=== PATIENT | male | born 1955 | race Caucasian/White ===

== ENCOUNTER → 2018-05-08 09:14 | Outpatient (CLI) | payer MEDICAID ==
--- NOTE | ~2018-05-08 | EC ---
PATIENT:ANTONIO CINTRON DATE OF SERVICE: 05/08/18 SEX: M MEDICAL RECORD: [id number] DATE OF : 57 LOCATION:D[facility] AGE OF PATIENT: 62 ADMISSION DATE: 05/08/18 REFERRING PHYSICIAN: INTERPRETING PHYSICIAN: JO BALDERAS MD ECHOCARDIOGRAM REPORT ECHO CHARGES 4 ECHO COMPLETE Date: 05/08/18 CLINICAL DIAGNOSIS: HYPERLIPIDEMA/CHEST PAIN ECHOCARDIOGRAPHIC MEASUREMENTS (adult normal given) AC root (d.<3.7cm) 4.2 cm LV Septum d (<1.2 cm> 1.3 cm Valve Excursion 1.9 cm LV Septum (systole) 1.8 cm Left Atria (s.<4.0cm> 3.9 cm LVPW d(<1.2cm) 1.5 cm RV (d.<2.3cm) 4.0 cm LVPW (sytole) 1.8 cm LV diastole(<5.6CM) 4.5 cm MV E-F(>70mm/sec) cm LV systole 2.3 cm LVOT Diameter 1.9 cm MV exc.(>10mm) 1.9 cm Est.ejection fraction (50-75%) % DOPPLER: LVIT cm/sec A 98.0 cm/sec E 85.0 cm/sec LA cm/sec RVSP 18 mmHg LVOT 111 cm/sec AOP1/2T m/s Asc. Ao 165 cm/sec RVOT 90 cm/sec RA cm/sec PA 151 cm/sec AV Gradient Peak 10.84mmHg AV Mean 5.49 mmHg AV Area 2.0 cm MV Gradient Peak 4.23 mmHg MV Mean 1.27 mmHg MV Area cm COMMENTS: Environmental Department Manager: Timi TREJO Mechanical Manager: Damián Balderas TAPE# PACS Pericardial Effusion N DATE OF SERVICE: PROCEDURE: Transthoracic echocardiogram. INDICATION: 1. The left ventricle shows mild left ventricular hypertrophy. Ejection fraction is 65%. 2. Left atrium is normal size, shape, and function. 3. The aortic valve is normal. 4. The mitral valve is normal. ECHOCARDIOGRAM REPORT [id number] ANTONIO CINTRON 5. The tricuspid valve has trace tricuspid regurgitation. RVSP is normal. 6. The right ventricle appears to be mgcs-mw-jqkmykkovp dilated. 7. The right atrium appears to be upper limits of normal. 8. The pulmonic valve is not well visualized, but appears to be structurally and functionally normal. There is no pericardial effusion. CONCLUSION: The patient has evidence of hypertensive heart disease with diastolic dysfunction, otherwise normal echocardiogram. TRANSINT:[id number] Voice Confirmation ID: [id number] DOCUMENT ID: [id number] JO BALDERAS MD at 0738 CC: [id number] DICTATION DATE: 05/09/18837 SPLITTING MACHINE FEEDER: 05/09/18 0953 DEP CLI 05/08/18 [id number] [place] [address]
== END | disposition home or self-care (01) ==
LOC: D.ECHO 09:00
DX: E78.5 Hyperlipidemia, unspecified (principal)

== ENCOUNTER → 2018-05-16 07:52 | Outpatient (CLI) | payer MEDICAID ==
--- NOTE | ~2018-05-16 | ST ---
PATIENT:ANTONIO CINTRON MEDICAL RECORD: [id number] SEX: M LOCATION:[facility] ORDER #: ADMISSION DATE: 05/16/18 AGE OF PATIENT: 62 REFERRING PHYSICIAN: INTERPRETING PHYSICIAN: JO BALDERAS MD DATE OF SERVICE: 05/16/2018 PROCEDURE: Rufino directed exercise nuclear stress test. PROCEDURE IN DETAIL: The patient was brought into the nuclear stress test, exercised on a standard Rufino protocol. The patient had no significant ST or T-wave abnormalities. There were 3 stages of Rufino, had an adequate double product. Rufino score is -7. The patient then had nuclear infusion both at rest and stress. The patient had 12.5 mCi sestamibi injected at rest and 32.3 mCi sestamibi injected at stress. The gated imaging showed an ejection fraction of 62% without regional wall motion abnormalities. The SPECT imaging showed good homogeneous uptake. No areas of photopenia. Negative for any inducible ischemia. IMPRESSION: This is normal Rufino and normal nuclear stress test, images being of good quality. The patient has a normal ejection fraction. TRANSINT:[id number] Voice Confirmation ID: [id number] DOCUMENT ID: [id number] JO BALDERAS MD CC: [id number] DICTATION DATE: 05/17/18 08 WARRANT CLERK: 05/17/18 0832 DEP CLI 05/16/18 [address] [place] [address]
== END | disposition home or self-care (01) ==
LOC: D.NM 07:52
DX: R07.9 Chest pain, unspecified (principal); R00.2 Palpitations; R06.02 Shortness of breath; E78.5 Hyperlipidemia, unspecified; I10 Essential (primary) hypertension

== ENCOUNTER 2018-07-16 10:50 | Emergency (ER) | payer MEDICAID ==
[~2018-07-16] VITALS: Ht 180.3 cm; Wt 95.5 kg
[2018-07-16 10:59] VITALS: Ht 180.3 cm; Wt 95.5 kg
[2018-07-16] MEDS ORDERED: HYDROXYUREA500 MG PO (11:01)
[2018-07-16] MEDS ORDERED: GLUCOPHAGE500 MG PO (11:01)
[2018-07-16] MEDS ORDERED: LISINOPRIL2.5 MG PO (11:01)
[2018-07-16] MEDS ORDERED: ZOCOR20 MG PO (11:01)
[2018-07-16] MEDS ORDERED: BAYER CHEWABLE81 MG PO (11:02)
[2018-07-16 11:16] LABS: BASOPHILS 0.9 % (0-2); EOSINOPHILS 3.4 % (0-7); HEMATOCRIT 40.6 % (42.0-54.0); HEMOGLOBIN 13.1 g/dL (13.5-17.5); IMMATURE GRANULOCYTES 0.8 % (0-5); LYMPHOCYTES 12.3 % (15-50); MCH 25.4 pg (26.0-34.0); MCHC 32.3 g/dL (31.0-37.0); MCV 78.7 fL (80.0-100.0); MEAN PLATELET VOLUME 9.1 fL (7.4-10.4); MONOCYTES 5.3 % (2-11); NEUTROPHILS 77.3 % (40-80); PLATELET COUNT 315 10x3/uL (130-400); RBC 5.16 10x6/uL (4.20-6.10); RDW 22.8 % (11.5-14.5); WBC 12.9 10x3/uL (4.8-10.8)
[2018-07-16 11:35] LABS: ALBUMIN 3.9 g/dL (3.4-5.0); ALKALINE PHOSPHATASE 68 U/L (46-116); ALT (SGPT) 35 U/L (10-68); BILIRUBIN - TOTAL 0.33 mg/dL (0.2-1.3); CALC OSMOLALITY 278 mosm/kg (275-300); CALCIUM 9.6 mg/dL (8.5-10.1); CARBON DIOXIDE 30.4 mmol/L (21.0-32.0); CHLORIDE - SERUM 103 mmol/L (98-107); CREATININE - SERUM 0.7 mg/dL (0.6-1.3); GLUCOSE 136 mg/dL (74-106); POTASSIUM - SERUM 4.1 mmol/L (3.5-5.1); PROTEIN - SERUM 8.1 g/dL (6.4-8.2); SODIUM 138 mmol/L (136-145); UREA NITROGEN 14 mg/dL (7-18); eGFR NON AFRICAN AMERICAN > 90 mL/min (90-120)
[2018-07-16 11:43] LABS: CKMB 2.1 U/L (0.0-3.6); CREATINE KINASE 122 UL (21-232); MAGNESIUM - SERUM 1.8 mg/dL (1.8-2.4); PRO BNP 38 pg/mL (0-125); TROPONIN-I < 0.017 ng/mL (0.000-0.060)
[2018-07-16] MEDS ORDERED: OMEPRAZOLE40 MG PO (12:56)
[2018-07-16 14:05] VITALS: BP 115/82
== END 2018-07-16 13:45 | disposition home or self-care (01) ==
LOC: D.ER 10:50
PROVIDERS: Emergency Medicine
DX: R07.9 Chest pain, unspecified (principal); E11.9 Type 2 diabetes mellitus without complications; K21.9 Gastro-esophageal reflux disease without esophagitis; D72.829 Elevated white blood cell count, unspecified; D75.1 Secondary polycythemia; Z85.6 Personal history of leukemia; I49.3 Ventricular premature depolarization

== ENCOUNTER → 2018-10-01 11:41 | Outpatient (CLI) | payer BC ==
[2018-07-16 10:59] VITALS: BMI 29.3
[~2018-10-01 11:41] MED LIST: BAYER CHEWABLE81 MG PO; GLUCOPHAGE500 MG PO; HYDROXYUREA500 MG PO; LISINOPRIL2.5 MG PO; OMEPRAZOLE40 MG PO; ZOCOR20 MG PO
== END | disposition home or self-care (01) ==
LOC: D.RAD 11:41
DX: J06.9 Acute upper respiratory infection, unspecified (principal)

== ENCOUNTER → 2018-10-15 12:34 | Outpatient (CLI) | payer BC ==
[2018-07-16 10:59] VITALS: BMI 29.3
== END | disposition home or self-care (01) ==
LOC: D.RAD 11:00
DX: M25.512 Pain in left shoulder (principal)

== ENCOUNTER 2018-11-23 07:25 | Day surgery (SDC) | payer BC ==
[2018-11-22 11:23] LABS: HEMATOCRIT 44.4 % (42.0-54.0); HEMOGLOBIN 14.8 g/dL (13.5-17.5); MCH 31.7 pg (26.0-34.0); MCHC 33.3 g/dL (31.0-37.0); MCV 95.1 fL (80.0-100.0); MEAN PLATELET VOLUME 9.4 fL (7.4-10.4); RBC 4.67 10x6/uL (4.20-6.10); RDW 15.8 % (11.5-14.5); WBC 12.6 10x3/uL (4.8-10.8)
[2018-11-22 11:32] LABS: INR 1.06 (0.85-1.17); PROTIME 13.3 SECONDS (11.6-15.0)
[2018-11-22 11:33] LABS: APTT 33.5 SECONDS (22.8-39.4)
[2018-11-22 11:34] LABS: CALC OSMOLALITY 285 mosm/kg (275-300); CALCIUM 9.3 mg/dL (8.5-10.1); CARBON DIOXIDE 29.5 mmol/L (21.0-32.0); CHLORIDE - SERUM 101 mmol/L (98-107); CREATININE - SERUM 0.9 mg/dL (0.6-1.3); GLUCOSE 231 mg/dL (74-106); SODIUM 140 mmol/L (136-145); UREA NITROGEN 13 mg/dL (7-18); eGFR NON AFRICAN AMERICAN > 90 mL/min (90-120)
[~2018-11-23] VITALS: Ht 180.3 cm; Wt 95.3 kg
[~2018-11-23 07:25] MED LIST changes: +FISH OIL 1,0001 CA1 PO
[2018-11-23 08:34] VITALS: Ht 180.3 cm; Wt 95.3 kg
[2018-11-23] MEDS ORDERED: DURICEF500 MG PO (12:53)
[2018-11-23] MEDS ORDERED: PERCOCET 7.5/321 TAB PO (12:53)
[2018-11-23] MEDS ORDERED: VISTARIL50 MG PO (12:54)
--- NOTE | 2018-11-23 15:12 | OP ---
PATIENT NAME: ANTONIO CINTRON MEDICAL RECORD: [id number] :57 LOCATION:[facility] ADMISSION DATE: SURGEON: BRYON DEL ANGEL DO DATE OF OPERATION: 11/23/2018 PROCEDURE PERFORMED: Left shoulder arthroscopy with lysis of adhesions, biceps tenodesis, subacromial decompression, distal clavicle excision, labral debridement, and manipulation under anesthesia. PREOPERATIVE DIAGNOSES: Left shoulder adhesive capsulitis, SLAP tear, subacromial impingement, and AC joint arthritis. INDICATIONS: Mr. Cintron is a 63-year-old male who has had left shoulder pain for quite some time. He had an MRI, which did show a questionable SLAP tear on the MRI, but he has had limited external rotation for quite some time that had been getting worse. He is a diabetic and has been working on his motion on his own and some therapy to no avail. He is tired of dealing with the pain and wanted something done surgically to relieve it. He also had AC joint arthritis noted on the MRI. I informed him that I would do a biceps tenodesis and do the manipulation and the lysis of adhesions in the rotator interval to free up his external rotation. As he had full forward flexion and abduction, I did not need to release any other part of the capsule. He is understanding of that, understood the risks and benefits including damage to nerves, axillary nerve in particular and infection, bleeding and need for further surgery as well as recurrence of adhesive capsulitis. He was okay with those risks and signed the consent. SURGEON: Bryon Del Angel DO DESCRIPTION OF PROCEDURE: The patient received a block by anesthesia in the preoperative area and taken to the operative suite, laid in the right lateral decubitus position with the left shoulder up. He was given 900 mg of clindamycin preoperatively. The left shoulder was prepped and draped in sterile fashion. A timeout was performed. Everyone was in agreement as to the correct side, site, patient and procedure. He had been sedated and an LMA was placed. The procedure then began with 60 mL of normal saline being injected into his shoulder joint from the posterior portal with an 18-gauge spinal needle and then an 11-blade scalpel to create the portal. The trocar was then entered into the joint and quite a bit of inflammation was seen in the joint itself. The SLAP tear was noted right away. The anterior portal was then established with an 18-gauge spinal needle and 11-blade scalpel. Trocar was brought in. The rotator cuff was inspected, did not have a full thickness tear on the articular side, the supraspinatus or the subscapularis or infraspinatus. The joint appeared to be in good condition. No chondromalacia was seen on the glenoid or the humerus. The bur was then brought in through the anterior portal and a bicep tenotomy was done at that point as well as a labral debridement and then the rotator interval was opened with the burner. Once this was done, the camera was removed and the scope was placed into the subacromial space. A lateral portal was then established with an 18-gauge spinal needle and 11-blade scalpel. Once that was opened up, the burner was brought in and decompression was done. He did have a significant amount of bursa in that area and a bursectomy was done. The acromion was cleaned off as well as AC joint and then the shaver was brought in and the distal clavicle was excised to open up the AC joint to approximately 7 mm, this through the anterior portal. The lateral portal was entered with a shaver and the distal lateral acromion was removed. The shaver OPERATIVE REPORT [id number] ANTONIO CINTRON was then kept in and more bursectomy was done on the top of the rotator cuff. The arm was rotated anterior and posterior to inspect it. No tears were seen on the bursal side. The scope was then removed and another small incision was made on the anterior humerus. Dissection was made down to the biceps tendon and biceps tendon was pulled out through the incision, whipstitched, and then a drill was used to make a unicortical hole in the humerus. A button was then placed on the whipstitched tendon and placed into the hole of the humerus and then the tendon was cinched down to that spot and then tied once down to the bone and then a free needle was used to go through the tendon again and this was tied down. Excess sutures and tendon were removed at that time and then the site was irrigated thoroughly. The portal sites of the shoulder were closed with 4-0 Monocryl in inverted interrupted fashion. The biceps tenodesis site was closed with a 2-0 Vicryl inverted interrupted fashion, 4-0 Monocryl ran on the skin. We then did the manipulation in external rotation with the arm at the side and we had a nice release. He had external rotation to 90 degrees at the side. The sites were then covered with Dermabond, Telfa and Tegaderm and ABD was placed on his shoulder. The patient was awakened and put in a sling and taken to recovery in stable condition. Blood loss was approximately 50 mL. COMPLICATIONS: None. TRANSINT:[id number] Voice Confirmation ID: [id number] DOCUMENT ID: [id number] BRYON DEL ANGEL DO at 1512 CC: [id number] DICTATION DATE: 11/23/18 1301 HEALTH EDUCATION SPECIALIST: 11/23/18 1414 [facility] [address] [place] [address]
--- NOTE | 2018-11-23 15:25 | NUR ---
RIGHT HAND PIV DC'D WITH TIP INTACT. PATIENT DRESSING IN PERSONAL CLOTHING. PATIENT AND SPOUSE UNDERSTAND IMPORTANCE OF LEAVING SLING ON LEFT ARM AND PUTTING SHIRT AROUND ROOM INSTEAD OF ARM IN SLEEVE 1378 DISCHARGE INSTRUCTIONS REVIEWED WITH PATIENT AND SPOUSE. DISCHARGED HOME VIA WHEELCHAIR TO PRIVATE VEHICLE WITH SPOUSE
== END 2018-11-23 15:45 | disposition home or self-care (01) ==
LOC: D.OPS 07:25 → D.PAN 09:45 → D.OPS 09:45
PROVIDERS: Anesthesiology; ATTEND Orthopaedic Surgery
DX: M75.02 Adhesive capsulitis of left shoulder (principal); S43.432A Superior glenoid labrum lesion of left shoulder, initial encounter; X58.XXXA Exposure to other specified factors, initial encounter; M75.42 Impingement syndrome of left shoulder; M13.812 Other specified arthritis, left shoulder; Z01.812 Encounter for preprocedural laboratory examination

== ENCOUNTER 2019-06-06 12:49 | Emergency (ER) | payer BC ==
[~2019-06-06] VITALS: Ht 180.3 cm; Wt 97.3 kg
[~2019-06-06 12:49] MED LIST changes: +DURICEF500 MG PO; +PERCOCET 7.5/321 TAB PO; +VISTARIL50 MG PO
[2019-06-06 13:18] VITALS: Ht 180.3 cm; Wt 97.3 kg
[2019-06-06 13:21] LABS: BASOPHILS 0.4 % (0-2); EOSINOPHILS 1.2 % (0-7); HEMATOCRIT 42.1 % (42.0-54.0); HEMOGLOBIN 14.9 g/dL (13.5-17.5); IMMATURE GRANULOCYTES 1.3 % (0-5); LYMPHOCYTES 11.8 % (15-50); MCH 37.1 pg (26.0-34.0); MCHC 35.4 g/dL (31.0-37.0); MCV 104.7 fL (80.0-100.0); MEAN PLATELET VOLUME 9.3 fL (7.4-10.4); MONOCYTES 4.8 % (2-11); NEUTROPHILS 80.5 % (40-80); PLATELET COUNT 155 10x3/uL (130-400); RBC 4.02 10x6/uL (4.20-6.10); RDW 13.5 % (11.5-14.5); WBC 7.6 10x3/uL (4.8-10.8)
[2019-06-06 13:36] LABS: ALBUMIN 3.9 g/dL (3.4-5.0); ALKALINE PHOSPHATASE 67 U/L (46-116); ALT (SGPT) 90 U/L (10-68); BILIRUBIN - TOTAL 0.58 mg/dL (0.2-1.3); CALC OSMOLALITY 282 mosm/kg (275-300); CALCIUM 9.1 mg/dL (8.5-10.1); CHLORIDE - SERUM 102 mmol/L (98-107); CREATININE - SERUM 0.8 mg/dL (0.6-1.3); POTASSIUM - SERUM 3.8 mmol/L (3.5-5.1); PROTEIN - SERUM 6.9 g/dL (6.4-8.2); SODIUM 141 mmol/L (136-145); UREA NITROGEN 10 mg/dL (7-18); eGFR NON AFRICAN AMERICAN > 90 mL/min (90-120)
[2019-06-06 13:37] LABS: GLUCOSE 147 mg/dL (74-106)
[2019-06-06 14:21] LABS: APTT 37.5 SECONDS (22.8-39.4); INR 1.12 (0.85-1.17); PROTIME 13.9 SECONDS (11.6-15.0)
[2019-06-06 14:26] LABS: APPEARANCE CLEAR (CLEAR); BILIRUBIN NEGATIVE (NEGATIVE); COLOR YELLOW (YELLOW); GLUCOSE NEGATIVE (NEGATIVE); KETONE NEGATIVE (NEGATIVE); NITRITE NEGATIVE (NEGATIVE); PROTEIN NEGATIVE (NEGATIVE); SPECIFIC GRAVITY 1.015 (1.005-1.020); UROBILINOGEN NORMAL (NORMAL)
[2019-06-06] MEDS ORDERED: CYCLOBENZAPRINE10 MG PO (14:35)
[2019-06-06] MEDS ORDERED: ACETAMINOPHEN500 M1 PO (14:35)
[2019-06-06] MEDS ORDERED: IBUPROFEN800 MG PO (14:35)
[2019-06-06 17:52] VITALS: BP 173/89
== END 2019-06-06 16:02 | disposition home or self-care (01) ==
LOC: D.ER 12:49
PROVIDERS: Family Medicine
DX: S00.03XA Contusion of scalp, initial encounter (principal); S50.312A Abrasion of left elbow, initial encounter; S50.311A Abrasion of right elbow, initial encounter; W11.XXXA Fall on and from ladder, initial encounter

== ENCOUNTER 2019-07-02 06:32 | Outpatient (CLI) | payer BC ==
[~2019-07-02] VITALS: Ht 180.3 cm; Wt 102.3 kg
[~2019-07-02 06:32] MED LIST changes: +ACETAMINOPHEN500 M1 PO; +CYCLOBENZAPRINE10 MG PO; +IBUPROFEN800 MG PO
[2019-07-02 07:11] LABS: CALC OSMOLALITY 285 mosm/kg (275-300); CALCIUM 9.4 mg/dL (8.5-10.1); CARBON DIOXIDE 28.7 mmol/L (21.0-32.0); CHLORIDE - SERUM 105 mmol/L (98-107); CREATININE - SERUM 0.7 mg/dL (0.6-1.3); GLUCOSE 135 mg/dL (74-106); POTASSIUM - SERUM 3.7 mmol/L (3.5-5.1); SODIUM 143 mmol/L (136-145); UREA NITROGEN 11 mg/dL (7-18); eGFR NON AFRICAN AMERICAN > 90 mL/min (90-120)
[2019-07-02 07:16] LABS: BASOPHILS 0.7 % (0-2); EOSINOPHILS 3.2 % (0-7); HEMATOCRIT 42.1 % (42.0-54.0); HEMOGLOBIN 14.6 g/dL (13.5-17.5); IMMATURE GRANULOCYTES 0.5 % (0-5); LYMPHOCYTES 16.4 % (15-50); MCHC 34.7 g/dL (31.0-37.0); MCV 106.6 fL (80.0-100.0); MEAN PLATELET VOLUME 9.8 fL (7.4-10.4); MONOCYTES 5.8 % (2-11); NEUTROPHILS 73.4 % (40-80); RBC 3.95 10x6/uL (4.20-6.10); WBC 9.4 10x3/uL (4.8-10.8)
[2019-07-02 07:17] LABS: PLATELET COUNT 227 10x3/uL (130-400)
[2019-07-02 07:26] LABS: APTT 37.2 SECONDS (22.8-39.4)
[2019-07-02 07:27] LABS: INR 1.09 (0.85-1.17); PROTIME 13.6 SECONDS (11.6-15.0)
[2019-07-02] MEDS ORDERED: OCCUVITE (07:42)
[2019-07-02] MEDS ORDERED: KLONOPIN1 MG PO (07:42)
[2019-07-02 08:01] VITALS: BP 143/84; Ht 180.3 cm; Wt 102.3 kg
--- NOTE | 2019-07-02 11:55 | NUR ---
1100 IV REMOVED AND INSTRUCTIONS GIVEN.
== END 2019-07-02 11:30 | disposition home or self-care (01) ==
LOC: D.SP 06:32 → D.CT 09:00 → D.SP 09:00
PROVIDERS: General Practice; ATTEND Internal Medicine Hematology & Oncology
DX: D45 Polycythemia vera (principal)

== ENCOUNTER 2019-07-19 11:15 | Inpatient (IN) | payer BC ==
[~2019-07-19] VITALS: Ht 180.3 cm; Wt 102.1 kg
[~2019-07-19 11:15] MED LIST changes: +KLONOPIN1 MG PO; +OCCUVITE
[2019-07-19 16:41] LABS: BASOPHILS 1.1 % (0-2); EOSINOPHILS 3.6 % (0-7); HEMATOCRIT 42.2 % (42.0-54.0); HEMOGLOBIN 14.5 g/dL (13.5-17.5); IMMATURE GRANULOCYTES 0.5 % (0-5); LYMPHOCYTES 20.4 % (15-50); MCH 36.7 pg (26.0-34.0); MCHC 34.4 g/dL (31.0-37.0); MCV 106.8 fL (80.0-100.0); MEAN PLATELET VOLUME 10.2 fL (7.4-10.4); MONOCYTES 5.9 % (2-11); NEUTROPHILS 68.5 % (40-80); PLATELET COUNT 219 10x3/uL (130-400); RBC 3.95 10x6/uL (4.20-6.10); RDW 12.7 % (11.5-14.5); WBC 6.6 10x3/uL (4.8-10.8)
[2019-07-19 16:47] LABS: INR 1.03 (0.85-1.17)
[2019-07-19 16:48] LABS: APTT 36.5 SECONDS (22.8-39.4)
[2019-07-19 16:50] LABS: CALC OSMOLALITY 283 mosm/kg (275-300); CALCIUM 9.3 mg/dL (8.5-10.1); CHLORIDE - SERUM 103 mmol/L (98-107); CREATININE - SERUM 0.8 mg/dL (0.6-1.3); POTASSIUM - SERUM 4.2 mmol/L (3.5-5.1); SODIUM 140 mmol/L (136-145); UREA NITROGEN 12 mg/dL (7-18); eGFR NON AFRICAN AMERICAN > 90 mL/min (90-120)
[2019-07-19 16:51] LABS: GLUCOSE 192 mg/dL (74-106)
[2019-07-22 11:12] VITALS: BP 129/84; BMI 31.4
--- NOTE | 2019-07-22 15:00 | NUR ---
PT ROUNDED ON AT THIS TIME. PT RESTING COMFORTABLY, DENIES ANY COMPLAINTS AT THIS TIME.
--- NOTE | 2019-07-22 16:46 | NUR ---
PT RESTING COMFORTABLY AT THIS TIME, DENIES ANY COMPLAINTS. PT UPDATED ON PLAN OF CARE,WILL CONTINUE TO MONITOR.
--- NOTE | 2019-07-22 20:12 | NUR ---
PT TRANSFERED TO 23 OBS AT THIS TIME. NAD NOTED. REPORT GIVEN TO LAVINIA BROWER.
[2019-07-22 21:19] VITALS: BP 137/77
[2019-07-23] VITALS (8 sets, daily range): BP systolic 107–133; BP diastolic 61–85; Ht 180.3 cm; Wt 102.1 kg
--- NOTE | 2019-07-23 06:18 | NUR ---
I have reviewed this patient and I concur with the Shift Assessment completed by the Licensed Practical Nurse today this shift.
--- NOTE | 2019-07-23 14:00 | NUR ---
REC'D BACK FROM SURGERY BY RN AT THIS TIME. EASILY TO AROUSED WHEN NAME IS CALLED. RESP EVEN AND UNLABORED WITH NO DISTRESS NOTED. DRESSING INTACT TO ABD WITH SCANT BLOOD NOTED WELL 3 LAP SITE WITH BAND-AID INTACT. VS PER PROTOCOL. AND CALL LIGHT IN REACH AT BEDSIDE.
--- NOTE | 2019-07-23 14:20 | MORECARE ---
CASE MANAGEMENT DISCHARGE SUMMARY PATIENT: ANTONIO CINTRON UNIT: [id number] ADM DATE: 07/22/19 AGE: 64 : 57 SEX: M ROOM/BED: D.2203 AUTHOR: ESTRELLITA,DOC PHYSICIAN: REFERRING PHYSICIAN: JAYA BOLDEN MD DATE OF SERVICE: 07/23/19 Discharge Plan Patient Name: ANTONIO CINTRON Facility: [facility]:[place] : 1955 Planned Disposition: Home Anticipated Discharge Date: 07/25/19 Discharge Date: Expected LOS: 3 Initial Reviewer: [email or web address] Initial Review Date: 07/22/2019 Generated: 07/23/19 3:20 pm Comments DCP- Discharge Planning Updated by [email or web address]: Bailey Coley on 07/23/19 1:[address] DC PLAN: Home with at dc. ANTICIPATED DC NEEDS: Unsure of dc needs at this time. CM met with patient and his to complete initial dc planning assessment. CM educated patient on the CM role and verbal consent given by patient to complete assessment. CM verified patient's address, phone number, and emergency contact phone numbers. Patient lives at home with his . He was independent in his care prior to hospital admission. At discharge patient plans to return home with his and feels this is a safe discharge. CM discussed availability of home health, rehab services, and medical equipment. Patient's is unsure at this time what patient will need at dc. CM left contact number and encouraged her to contact cm If needs arise. Patient's transport him home at time of discharge. CM will continue to follow and will assist as needed with dc plans/needs. Bailey Coley RN, [facility] DCPIA - Discharge Planning Initial Assessment Updated by [email or web address]: Bailey Coley on 07/23/19 2:16 pm * Is the patient Alert and Oriented? Yes * How many steps to enter\exit or inside your home? * PCP Dr. Ramirez * Pharmacy [facility] * Preadmission Environment Home with Family * ADLs Independent * Equipment None * List name and contact numbers for known caregivers / representatives who currently or will assist patient after discharge: Nicole Jon - - [phone] * Verbal permission to speak to the caregivers and representatives has been obtained from the patient. Yes * Community resources currently utilized None * Additional services required to return to the preadmission environment? No * Can the patient safely return to the preadmission environment? Yes * Has this patient been hospitalized within the prior 30 days at any hospital? No Patient Name: ANTONIO CINTRON Page [phone] at 1420 All edits/amendments must be made on the electronic document DICTATION DATE: 07/23/191419 MILL MANAGER: FUNMILAYO 07/23/191419 RPT#: [id number] DC DATE: STATUS: ADM IN [facility] [address] [place] [address] END OF REPORT
--- NOTE | 2019-07-23 18:20 | OP ---
PATIENT NAME: ANTONIO CINTRON MEDICAL RECORD: [id number] :57 LOCATION:[facility] ADMISSION DATE:07/22/19 SURGEON: JAYA BOLDEN MD DATE OF OPERATION: 07/23/2019 SURGEON: Jaya Bolden MD PREOPERATIVE DIAGNOSIS: Adenocarcinoma of the cecum. POSTOPERATIVE DIAGNOSIS: Adenocarcinoma of the cecum. PROCEDURE PERFORMED: Hand-assisted laparoscopic right hemicolectomy. ANESTHESIA: General. COMPLICATIONS: None. ESTIMATED BLOOD LOSS: 300 cc. SPECIMENS: Right colon and terminal ileum. OPERATIVE COURSE: After consent was obtained, the patient was taken to the operating room and placed in the supine position on the operating table. General anesthesia was given via endotracheal intubation. Thereafter, a timeout was performed to confirm the correct patient and procedure. The abdomen was prepped and draped in typical sterile fashion. Ioban dressing was placed. A stab incision was made just above the umbilicus using 11-blade scalpel. Using a 5-mm bladeless optical trocar, the abdomen was entered under direct laparoscopic vision. Adequate pneumoperitoneum was achieved. The abdominal cavity was inspected. No evidence of bowel injury. No evidence of bleeding. Two additional trocars were placed into the abdomen, 5-mm trocar in the epigastrium, 12-mm trocar in the left lateral quadrant. At this time, the greater omentum was grasped and retracted cephalad. The greater omentum was dissected off of the transverse colon using the Harmonic scalpel dissection. Once the hepatic flexure was mobilized, the right colon was elevated anteriorly, identifying the pedicle within the mesentery. The vascular pedicle was dissected out using Harmonic scalpel. The ileocolic vessels were taken with a single firing of the LIZANDRO linear cutting stapler, the white load stapler. At this time, a midline incision was made with a 10-blade scalpel. Dissection continued to the level of the fascia using electrocautery. The peritoneum was opened with electrocautery and the Faheem GelPort retractor was placed. The right colon and terminal ileum were extracorporealized as well as the hepatic flexure. The right branch of the middle colic vessels were identified. The mesentery was patient divided just proximal to the right branch of the ileocolic vessels. A mesenteric window was created in the distal portion of the terminal ileum, approximately 10 cm from the ileocecal valve. At this time, an fnjb-[id number]-yqmj ileocolonic anastomosis was performed. Stay sutures were placed. Enterotomies were created with electrocautery. A common enterotomy was closed with a single fire of the LIZANDRO 75-mm linear cutting stapler. The stapler was then passed through the mesenteric windows and the common enterotomy was closed with a second fire of the linear 75-mm LIZANDRO stapler. The mesentery was taken with Harmonic scalpel and the specimen was passed off the field and sent for permanent pathology. The mesenteric window was closed with interrupted 3-0 Vicryl suture. The staple line was imbricated using 3-0 Vicryl suture. The abdomen was copiously irrigated and suctioned. The ileocolonic anastomosis was returned to the OPERATIVE REPORT [id number] ANTONIO CINTRON abdomen. The GelPort was placed. The abdomen was reinsufflated. The abdomen was meticulously inspected. No evidence of bowel injury. No evidence of bleeding. At this time, all remaining instruments were removed. The trocars were removed. The abdomen was desufflated. The GelPort was removed. The fascial incision was closed with #1 looped PDS. Skin incisions were closed with savannah. At the end of the case, all needle and instrument counts were correct. No complications. The patient was extubated and transferred to PACU in stable condition. TRANSINT:[id number] Voice Confirmation ID: [id number] DOCUMENT ID: [id number] JAYA BOLDEN MD at 1820 CC: [id number] DICTATION DATE: 07/23/19 1258 REJOGGER: 07/23/19 1523 ADM IN [facility] [address] [id number]
[2019-07-24] VITALS: BP 127/71
--- NOTE | 2019-07-24 03:13 | NUR ---
I have reviewed this patient and I concur with the Shift Assessment completed by the Licensed Practical Nurse today this shift.
[2019-07-24 04:00] VITALS: BP 117/69
--- NOTE | 2019-07-24 07:10 | NUR ---
ALERT AND ORIENTED, RESTING IN BED. NO C/O PAIN. NO S/S OF ACUTE DISTRESS NOTED. ON 2L O2, NC. IV TO RIGHT WRIST, D5LR WITH 2O K+ INFUSING @ 75ML/HR. SITE PATENT WITHOUT REDNESS OR SWELLING. SCDS PRESENT. POD #1 HEMOCOLECTOMY WITH MIDLINE INCISION, DRESSING C/D/I. 3 LAP SITES TO ABDOMEN, C/D/I. DENIES ANY NEEDS AT THIS TIME. CALL LIGHT IN REACH. WILL CONTINUE TO MONITOR.
[2019-07-24 08:27] LABS: BASOPHILS 0.3 % (0-2); EOSINOPHILS 0.2 % (0-7); HEMATOCRIT 37.2 % (42.0-54.0); HEMOGLOBIN 12.5 g/dL (13.5-17.5); IMMATURE GRANULOCYTES 0.3 % (0-5); LYMPHOCYTES 6.8 % (15-50); MCH 35.6 pg (26.0-34.0); MCHC 33.6 g/dL (31.0-37.0); MEAN PLATELET VOLUME 9.1 fL (7.4-10.4); MONOCYTES 8.6 % (2-11); NEUTROPHILS 83.8 % (40-80); PLATELET COUNT 181 10x3/uL (130-400); RBC 3.51 10x6/uL (4.20-6.10); RDW 12.8 % (11.5-14.5); WBC 10.8 10x3/uL (4.8-10.8)
[2019-07-24 08:42] LABS: CALC OSMOLALITY 277 mosm/kg (275-300); CALCIUM 8.6 mg/dL (8.5-10.1); CARBON DIOXIDE 27.7 mmol/L (21.0-32.0); CHLORIDE - SERUM 103 mmol/L (98-107); CREATININE - SERUM 0.8 mg/dL (0.6-1.3); GLUCOSE 176 mg/dL (74-106); POTASSIUM - SERUM 3.7 mmol/L (3.5-5.1); SODIUM 138 mmol/L (136-145); UREA NITROGEN 6 mg/dL (7-18); eGFR NON AFRICAN AMERICAN > 90 mL/min (90-120)
[2019-07-24 09:22] VITALS: BP 108/71
[2019-07-24 13:13] VITALS: BP 116/69
--- NOTE | 2019-07-24 14:02 | NUR ---
NUTRITION F/U CHART REVIEWED. PT TOLERATING CLEAR LIQUID DIET. WILL MONTIOR DIET ADVANCEMENT, PO INTAKE. RD FOLLOWING
--- NOTE | 2019-07-24 15:45 | NUR ---
I have reviewed this patient and I concur with the Shift Assessment completed by the Licensed Practical Nurse today this shift.
[2019-07-24 16:45] VITALS: BP 102/69
--- NOTE | 2019-07-24 18:17 | NUR ---
ALERT AND ORIENTED, RESTING IN BED WITH EYES OPEN. NO C/O PAIN. NO S/S OF ACUTE DISTRESS NOTED. DENIES ANY NEEDS AT THIS TIME. CALL LIGHT IN REACH. WILL CONTINUE TO MONITOR.
[2019-07-24 19:46] VITALS: BP 105/62
[2019-07-25] VITALS: BP 110/60
--- NOTE | 2019-07-25 02:41 | NUR ---
PATENT IS ALERT AND ORENTED ABLE TO VOICE NEEDS AND WANTS TO STAFF. IV TO RIGHT WRIST WITH D5LR WITH [address] PER ORDERS. NO REDNESS OR PAIN AT IV SITE.DENIES NEEDS AT THIS TIME
[2019-07-25 04:00] VITALS: BP 128/77
[2019-07-25 06:12] LABS: BASOPHILS 0.3 % (0-2); EOSINOPHILS 1.6 % (0-7); HEMATOCRIT 34.5 % (42.0-54.0); HEMOGLOBIN 11.4 g/dL (13.5-17.5); IMMATURE GRANULOCYTES 0.3 % (0-5); LYMPHOCYTES 8.7 % (15-50); MCH 35.5 pg (26.0-34.0); MCV 107.5 fL (80.0-100.0); MEAN PLATELET VOLUME 9.3 fL (7.4-10.4); NEUTROPHILS 81.1 % (40-80); PLATELET COUNT 177 10x3/uL (130-400); RBC 3.21 10x6/uL (4.20-6.10); RDW 12.7 % (11.5-14.5); WBC 10.1 10x3/uL (4.8-10.8)
[2019-07-25 06:22] LABS: CALC OSMOLALITY 281 mosm/kg (275-300); CALCIUM 8.6 mg/dL (8.5-10.1); CARBON DIOXIDE 29.4 mmol/L (21.0-32.0); CHLORIDE - SERUM 104 mmol/L (98-107); GLUCOSE 177 mg/dL (74-106); POTASSIUM - SERUM 3.4 mmol/L (3.5-5.1); SODIUM 141 mmol/L (136-145); UREA NITROGEN 4 mg/dL (7-18); eGFR NON AFRICAN AMERICAN 80 mL/min (90-120)
--- NOTE | 2019-07-25 07:00 | NUR ---
ALERT AND ORIENTED, RESTING IN BED WITH EYES OPEN. NO C/O PAIN. NO S/S OF ACUTE DISTRESS NOTED. MIDLINE INCISION AND 3 LAP SITES TO ABDOMEN, SITES C/D/I. ON 2L O2, NC. IV TO RIGHT WRIST, D5LR WITH 10K+ INFUSING @ 50ML/HR. SITE PATENT WITHOUT REDNESS OR SWELLING. DENIES ANY NEEDS AT THIS TIME. CALL LIGHT IN REACH. WILL CONTINUE TO MONITOR.
[2019-07-25 08:42] VITALS: BP 127/84
[2019-07-25 12:29] VITALS: BP 125/73
[2019-07-25 17:35] VITALS: BP 124/75
--- NOTE | 2019-07-25 17:43 | NUR ---
I have reviewed this patient and I concur with the Shift Assessment completed by the Licensed Practical Nurse today this shift.
[2019-07-25 20:29] VITALS: BP 154/87
--- NOTE | 2019-07-25 23:46 | NUR ---
PATIENT IS ALERT AND ORENTED ABLE TO VOICE NEEDS AND WANTS TO STAFF. REMAINS WITH O2 AT 2L VIA N/C NEEDED. IV TO RIGHT FR TOP SIDE INFILTRATED AT SHIFT CHANGE RESITED TO SIDE OF RIGHT FA WIT A 22GAGE. D5LR WITH 20MEQ OF K AT 75ML/HR IN PLACE. SCD'S OFF AT THIS TIME PER REQUEST , PT BRAUN SBEEN UP WALKING AND USING INCETIVE SPIROMETER. MIDLINE INCISION AND 3 LAP SITES WITH DRESSINGS CDI TO ABD. AT BEDSIDE. STATED THAT SHE WILL NEED HELP WHEN HE GOES HOME TO TAKE CARE OF HIME. SHE ALSO STATED WHEN CASE MANAGMENT CAME HE TOLD THEM THAT HE WOULD NOT NEED HELP, SHE HAS ASK THE C.M. TALK WITH HER SO SHE CAN SEE IF THEY CAN GET SOME KIND OF HELP . SHE IS AFRAID THAT SHE CAN NOT DO IT ALONE. SHE ASK WHEN THEY WOULD RESTART HIS METFORMIN FOR HIS TYPE 2 DIABETES, EDUCATED THAT A NOTE WOULD BE MADE AND STAFF WOULD PASS IT IN REPORT, BUT TO TALK WITH MD IN AM ABOUT IT WELL. THAT
[2019-07-26 01:22] VITALS: BP 117/73
[2019-07-26 06:20] VITALS: BP 143/90
[2019-07-26 07:11] LABS: BASOPHILS 0.3 % (0-2); HEMATOCRIT 34.6 % (42.0-54.0); HEMOGLOBIN 11.4 g/dL (13.5-17.5); IMMATURE GRANULOCYTES 0.3 % (0-5); MCH 35.5 pg (26.0-34.0); MCHC 32.9 g/dL (31.0-37.0); MCV 107.8 fL (80.0-100.0); MEAN PLATELET VOLUME 9.7 fL (7.4-10.4); MONOCYTES 7.5 % (2-11); NEUTROPHILS 78.9 % (40-80); PLATELET COUNT 212 10x3/uL (130-400); RBC 3.21 10x6/uL (4.20-6.10); RDW 12.8 % (11.5-14.5)
--- NOTE | 2019-07-26 07:15 | NUR ---
REC'D SITTING ON SIDE OF BED AWAKE AND ALERT. RESP EVEN AND UNLABORED WITH NO DISTRESS NOTED. NO C/O VOICED. ASSESSMENT COMPLETED. C/L IN REACH AT BEDSIDE.
[2019-07-26 07:21] LABS: CALC OSMOLALITY 287 mosm/kg (275-300); CALCIUM 8.7 mg/dL (8.5-10.1); CARBON DIOXIDE 29.5 mmol/L (21.0-32.0); CHLORIDE - SERUM 105 mmol/L (98-107); CREATININE - SERUM 0.9 mg/dL (0.6-1.3); GLUCOSE 198 mg/dL (74-106); POTASSIUM - SERUM 3.3 mmol/L (3.5-5.1); SODIUM 143 mmol/L (136-145); UREA NITROGEN 4 mg/dL (7-18); eGFR NON AFRICAN AMERICAN > 90 mL/min (90-120)
[2019-07-26 09:01] VITALS: BP 124/82
[2019-07-26] MEDS ORDERED: HYDROCODON-ACE1 EAC7 PO (10:45)
[2019-07-26] MEDS ORDERED: LEVOFLOXACIN500 MG PO (10:48)
--- NOTE | 2019-07-26 11:45 | MORECARE ---
CASE MANAGEMENT DISCHARGE SUMMARY PATIENT: ANTONIO CINTRON UNIT: [id number] ADM DATE: 07/22/19 AGE: 64 : 57 SEX: M ROOM/BED: D.2203 AUTHOR: ESTRELLITA,DOC PHYSICIAN: REFERRING PHYSICIAN: JAYA BOLDEN MD DATE OF SERVICE: 07/26/19 Discharge Plan Patient Name: ANTONIO CINTRON Facility: [facility]:[place] : 1955 Planned Disposition: Home Anticipated Discharge Date: 07/25/19 Discharge Date: Expected LOS: 3 Initial Reviewer: [email or web address] Initial Review Date: 07/22/2019 Generated: 07/26/19 12:45 pm Comments DCP- Discharge Planning Updated by [email or web address]: Tram Eaton on 07/26/19 10:[address] PATIENT WOULD LIKE A BEDSIDE [facility] [place] WITH [facility] I WILL ORDER AND SEND TO THEM, IF INSURANCE WILL NOT PAY THEY HAVE A SECOND OPTION TO GO TO THE [facility] [place] DCP- Discharge Planning Updated by [email or web address]: Bailey Coley on 07/23/19 1:[address] DC PLAN: Home with at dc. ANTICIPATED DC NEEDS: Unsure of dc needs at this time. CM met with patient and his to complete initial dc planning assessment. CM educated patient on the CM role and verbal consent given by patient to complete assessment. CM verified patient's address, phone number, and emergency contact phone numbers. Patient lives at home with his . He was independent in his care prior to hospital admission. At discharge patient plans to return home with his and feels this is a safe discharge. CM discussed availability of home health, rehab services, and medical equipment. Patient's is unsure at this time what patient will need at dc. CM left contact number and encouraged her to contact cm If needs arise. Patient's transport him home at time of discharge. CM will continue to follow and will assist as needed with dc plans/needs. Bailey Coley RN, [facility] DCPIA - Discharge Planning Initial Assessment Updated by [email or web address]: Bailey Coley on 07/23/19 2:16 pm * Is the patient Alert and Oriented? Yes * How many steps to enter\exit or inside your home? * PCP Dr. Ramirez * Pharmacy [facility] * Preadmission Environment Home with Family * ADLs Independent * Equipment None * List name and contact numbers for known caregivers / representatives who currently or will assist patient after discharge: Nicole Jon - - [phone] * Verbal permission to speak to the caregivers and representatives has been obtained from the patient. Yes * Community resources currently utilized None * Additional services required to return to the preadmission environment? No * Can the patient safely return to the preadmission environment? Yes * Has this patient been hospitalized within the prior 30 days at any hospital? No External Providers External Provider: [facility] Next Contact Date: Service Request Date: Service Type: Resolution: Reviewer: Comments: Last DP export: 07/23/19 1:20 Patient Name: ANTONIO CINTRON Page [phone] at 1145 All edits/amendments must be made on the electronic document DICTATION DATE: 07/26/19 1145 NEWS ASSISTANT: FUNMILAYO 07/26/19 1145 RPT#: [id number] DC DATE: STATUS: ADM IN [facility] [address] [place] [address] END OF REPORT
--- NOTE | 2019-07-26 11:52 | MORECARE ---
CASE MANAGEMENT DISCHARGE SUMMARY PATIENT: ANTONIO CINTRON UNIT: [id number] ADM DATE: 07/22/19 AGE: 64 : 57 SEX: M ROOM/BED: D.2203 AUTHOR: ESTRELLITA,DOC PHYSICIAN: REFERRING PHYSICIAN: JAYA BOLDEN MD DATE OF SERVICE: 07/26/19 Discharge Plan Patient Name: ANTONIO CINTRON Facility: [facility]:[place] : 1955 Planned Disposition: Home Anticipated Discharge Date: 07/25/19 Discharge Date: Expected LOS: 3 Initial Reviewer: [email or web address] Initial Review Date: 07/22/2019 Generated: 07/26/19 12:51 pm Comments DCP- Discharge Planning Updated by [email or web address]: Tram Eaotn on 07/26/19 10:[address] [facility] WITH [facility] NOTIFIED AND THE PATIENT WILL PICK IT UP WHEN DISCHARGED DCP- Discharge Planning Updated by [email or web address]: Tram Eaton on 07/26/19 10:[address] PATIENT WOULD LIKE A BEDSIDE [facility] WITH [facility] I WILL ORDER AND SEND TO THEM, IF INSURANCE WILL NOT PAY THEY HAVE A SECOND OPTION [facility] [place] DCP- Discharge Planning Updated by [email or web address]: Bailey Coley on 07/23/19 1:[address] DC PLAN: Home with at dc. ANTICIPATED DC NEEDS: Unsure of dc needs at this time. CM met with patient and his to complete initial dc planning assessment. CM educated patient on the CM role and verbal consent given by patient to complete assessment. CM verified patient's address, phone number, and emergency contact phone numbers. Patient lives at home with his . He was independent in his care prior to hospital admission. At discharge patient plans to return home with his and feels this is a safe discharge. CM discussed availability of home health, rehab services, and medical equipment. Patient's is unsure at this time what patient will need at dc. CM left contact number and encouraged her to contact cm If needs arise. Patient's transport him home at time of discharge. CM will continue to follow and will assist as needed with dc plans/needs. Bailey Coley RN, [facility] DCPIA - Discharge Planning Initial Assessment Updated by [id number]: Bailey Coley on 07/23/19 2:16 pm * Is the patient Alert and Oriented? Yes * How many steps to enter\exit or inside your home? * PCP Dr. Ramirez * Pharmacy [facility] * Preadmission Environment Home with Family * ADLs Independent * Equipment None * List name and contact numbers for known caregivers / representatives who currently or will assist patient after discharge: Nicole Jon - benja - [phone] * Verbal permission to speak to the caregivers and representatives has been obtained from the patient. Yes * Community resources currently utilized None * Additional services required to return to the preadmission environment? No * Can the patient safely return to the preadmission environment? Yes * Has this patient been hospitalized within the prior 30 days at any hospital? No Coverage Notice Reviewer: [email or web address] Matt Eaton Notice Issued Date-Time: 07/26/2019 11:20 Notice Type: Patient Choice Letter Notice Delivered To: Patient Relationship to Patient: Access Liaison Name: Delivery Method: HAND - Hand Delivered Ana Maria Days: Prior Verbal Notification: Recipient Understood Notice: Yes Recipient Signature: Yes Med Rec Note Co-signed by Attending: Coverage Notice Comment: Last DP export: 07/26/19 10:45 Patient Name: ANTONIO CINTRON Page [id number] at 1152 All edits/amendments must be made on the electronic document DICTATION DATE: 07/26/19 115 GEOSCIENCE TECHNICIAN: FUNMILAYO 07/26/19 1151 RPT#: [id number] DE DATE: STATUS: ADM IN [facility] [address] [place] [address] END OF REPORT
--- NOTE | 2019-07-26 12:50 | NUR ---
I have reviewed this patient and I concur with the Shift Assessment completed by the Licensed Practical Nurse today this shift.
--- NOTE | 2019-07-26 12:59 | NUR ---
DC HOME AT THIS TIME IN STABLE CONDITION VOICE UNDERSTANDING OF DC INSTRUCTION. IV DC WITH TIP INTACT. AT BEDSIDE VOICE UNDERSTANDING WELL.
--- NOTE | 2019-07-27 15:19 | MORECARE ---
CASE MANAGEMENT DISCHARGE SUMMARY PATIENT: ANTONIO CINTRON UNIT: [id number] ADM DATE: 07/22/19 AGE: 64 : 57 SEX: M ROOM/BED: D.2203 AUTHOR: ESTRELLITA,DOC PHYSICIAN: REFERRING PHYSICIAN: JAYA BOLDEN MD DATE OF SERVICE: 07/27/19 Discharge Plan Patient Name: ANTONIO CINTRON Facility: [facility]:[place] : 1955 Planned Disposition: Home Anticipated Discharge Date: 07/25/19 Discharge Date: 07/26/2019 Expected LOS: 3 Initial Reviewer: [email or web address] Initial Review Date: 07/22/2019 Generated: 07/27/19 4:18 pm Comments DCP- Discharge Planning Updated by [email or web address]: Tram Eaton on 07/26/19 10:[address] [facility] NOTIFIED AND THE PATIENT WILL PICK IT UP WHEN DISCHARGED DCP- Discharge Planning Updated by [email or web address]: Tram Eaton on 07/26/19 10:[address] PATIENT WOULD LIKE A BEDSIDE [facility] WITH [facility] I WILL ORDER AND SEND TO THEM, IF INSURANCE WILL NOT PAY THEY HAVE [facility] [place] DCP- Discharge Planning Updated by [id number]: Bailey Coley on 07/23/19 1:[address] DC PLAN: Home with at dc. ANTICIPATED DC NEEDS: Unsure of dc needs at this time. CM met with patient and his to complete initial dc planning assessment. CM educated patient on the CM role and verbal consent given by patient to complete assessment. CM verified patient's address, phone number, and emergency contact phone numbers. Patient lives at home with his . He was independent in his care prior to hospital admission. At discharge patient plans to return home with his and feels this is a safe discharge. CM discussed availability of home health, rehab services, and medical equipment. Patient's is unsure at this time what patient will need at dc. CM left contact number and encouraged her to contact cm If needs arise. Patient's transport him home at time of discharge. CM will continue to follow and will assist as needed with dc plans/needs. Bailey Coley RN, [facility] DCPIA - Discharge Planning Initial Assessment Updated by [email or web address]: Bailey Coley on 07/23/19 2:16 pm * Is the patient Alert and Oriented? Yes * How many steps to enter\exit or inside your home? * PCP Dr. Ramirez * Pharmacy [facility] * Preadmission Environment Home with Family * ADLs Independent * Equipment None * List name and contact numbers for known caregivers / representatives who currently or will assist patient after discharge: Nicole Jon - benja - [phone] * Verbal permission to speak to the caregivers and representatives has been obtained from the patient. Yes * Community resources currently utilized None * Additional services required to return to the preadmission environment? No * Can the patient safely return to the preadmission environment? Yes * Has this patient been hospitalized within the prior 30 days at any hospital? No Coverage Notice Reviewer: [email or web address] Matt Eaton Notice Issued Date-Time: 07/26/2019 11:20 Notice Type: Patient Choice Letter Notice Delivered To: Patient Relationship to Patient: Fleet Administrative Assistant Name: Delivery Method: HAND - Hand Delivered Ana Maria Days: Prior Verbal Notification: Recipient Understood Notice: Yes Recipient Signature: Yes Med Rec Note Co-signed by Attending: Coverage Notice Comment: Last DP export: 07/26/19 10:52 Patient Name: ANTONIO CINTRON Page [id number] at 1519 All edits/amendments must be made on the electronic document DICTATION DATE: 07/27/191517 OFFICE SUPERVISOR: FUNMILAYO 07/27/19 1518 RPT#: [id number] DC DATE:07/26/19 STATUS: DIS IN [facility] [address] [place] [address] END OF REPORT
== END 2019-07-26 13:00 | disposition home or self-care (01) | DRG 331 ==
LOC: D.SDCHOLD 07-22 09:45 → D.MS 07-22 09:45 → D.SDCHOLD 07-22 12:00 → D.MS 07-22 19:58
PROVIDERS: Anesthesiology; ADMIT Surgery; ATTEND Surgery
PROC: 0DTF0ZZ Resection of Right Large Intestine, Open Approach (ICD-10-PCS; principal; 2019-07-23 10:14)
DX: C18.0 Malignant neoplasm of cecum (principal); E11.9 Type 2 diabetes mellitus without complications; K21.9 Gastro-esophageal reflux disease without esophagitis; D45 Polycythemia vera